=== PATIENT | female | born 1995 | race Caucasian/White ===

== ENCOUNTER 2022-05-12 17:06 | Observation (INO) | payer SELFPAY ==
[2022-05-12] MEDS ORDERED: Morphine 4 MG/ML VIAL ONE (18:15)
[2022-05-12] MEDS ORDERED: Ketorolac Tromethamine 30 MG/ML VIAL ONE ×2 (21:29→23:50)
[2022-05-13] MEDS ORDERED: Melatonin 3 MG TAB PO PRN (01:35)
[2022-05-13] MEDS ORDERED: TETANUS, DIPHTHERIA TOX,ADULT (TDVAX) 0.5 ML VIAL IM ONE (01:37)
[2022-05-13] MEDS ORDERED: Dextrose 50% Abboject 50 ML SYRINGE SLOW IVP PRN (01:37)
[2022-05-13] MEDS ORDERED: traMADol HCl 50 MG TAB PO PRN (01:37)
[2022-05-13] MEDS ORDERED: Dextrose 5% in Water 1,000 ML IV PRN (01:37)
[2022-05-13] MEDS ORDERED: Ipratropium/Albuterol 3 ML NEB NEB PRN (01:37)
[2022-05-13] MEDS ORDERED: Cyclobenzaprine 10 MG TAB PO PRN (01:40)
[2022-05-13] MEDS: Ketorolac Tromethamine 30 MG/ML VIAL IVP SCH ×2 (03:26→09:05)
[2022-05-13] MEDS: Acetaminophen 500 MG TAB PO SCH ×2 (04:00→09:04)
[2022-05-13 04:06] VITALS: BMI 26.1
[2022-05-13 06:09] LABS: #Basophils 0.1 thou/uL (0.0-0.2); #Eosinphils 0.1 thou/uL (0.0-0.7); #Lymphocytes 2.3 thou/uL (1.20-3.40); #Monocytes 0.7 thou/uL (0.11-0.59); #Neutrophils 3.6 thou/uL (1.40-6.50); %Eosinophils 1.4 % (0.0-10.0); %Lymphocytes 34.5 % (21.0-51.0); %Monocytes 10.1 % (0.0-10.0); Hemoglobin 12.7 g/dL (12.0-16.0); Mean Corpuscular HGB CONC 33.4 g/dL (32.0-36.0); Mean Corpuscular Volume 95.9 fl (78.0-98.0); Mean Platelet Volume 7.4 fL (7.4-10.4); Platelet Count 280 10x3/uL (130-400); RBC Distribution Width 10.5 % (11.5-14.5); Red Blood Cell (RBC) Count 3.96 mill/uL (4.20-5.40); White Blood Cell (WBC) Count 6.8 10x3/uL (4.8-10.8)
[2022-05-13 06:31] LABS: ALT (SGPT) 12 U/L (8-55); AST (SGOT) 12 U/L (5-34); Albumin 3.6 g/dL (3.5-5.0); Alkaline Phosphatase 74 U/L (40-110); Anion Gap 12 mmol/L (10-20); BUN (Urea Nitrogen) 18 mg/dL (7.0-18.7); Bilirubin, Total 1.4 mg/dL (0.2-1.2); CK (CPK) 78 U/L (29-168); Calc. Creatinine Clearance 140 mL/min (70-130); Carbon Dioxide 27 mmol/L (22-29); Chloride 102 mmol/L (98-107); Estimated GFR 113; Globulin 2.5 g/dL (2.4-3.5); Glucose 98 mg/dL (70-105); Potassium 3.6 mmol/L (3.5-5.1); Protein, Total 6.1 g/dL (6.0-8.3); Sodium 137 mmol/L (136-145)
[2022-05-13] MEDS ORDERED: Senokot S 8.6-50 MG TAB PO SCH (09:00)
[2022-05-13 12:45] VITALS: BP 111/73; TEMP 98.8
== END 2022-05-13 13:10 | disposition home or self-care (01) ==
LOC: ERS 17:06 → SJJU 05-13 01:17
PROVIDERS: ADMIT Specialist; ATTEND Specialist
DX: S87.82XA Crushing injury of left lower leg, initial encounter (principal); S80.12XA Contusion of left lower leg, initial encounter; G89.11 Acute pain due to trauma; Z88.5 Allergy status to narcotic agent; Z91.040 Latex allergy status; Z98.890 Other specified postprocedural states; W23.0XXA Caught, crushed, jammed, or pinched between moving objects, initial encounter
CPT/HCPCS: 36415; 80053; 82550; 85025; 90714; 96374; 96375; 96376; G0378; G0390; J1885; J2270